=== PATIENT | male | born 1950 | race Caucasian/White ===

== ENCOUNTER 2018-08-02 07:11 | Emergency (ER) | payer OTHER ==
[~2018-08-02] VITALS: Ht 170.2 cm; Wt 83.9 kg
[2018-08-02] MEDS ORDERED: [UNRECOGNIZED DRUG - OTHER] PO (07:38)
[2018-08-02] MEDS ORDERED: SIMVASTATIN5 MG PO (07:40)
[2018-08-02] MEDS ORDERED: [UNRECOGNIZED DRUG - OTHER] PO (07:41)
[2018-08-02] MEDS ORDERED: AMOX1TAB5 PO (11:23)
== END 2018-08-02 14:44 | disposition home or self-care (01) ==
LOC: ER 07:11
DX: B34.9 Viral infection, unspecified (principal)

== ENCOUNTER 2019-12-13 08:05 | Outpatient (CLI) | payer OTHER ==
[~2019-12-13 08:05] MED LIST: AMOX1TAB5 PO; SIMVASTATIN5 MG PO; [UNRECOGNIZED DRUG - OTHER] PO; [UNRECOGNIZED DRUG - OTHER] PO
== END 2019-12-13 09:00 | disposition home or self-care (01) ==
LOC: SONOGRAMA 08:05
DX: K81.1 Chronic cholecystitis (principal)

== ENCOUNTER 2019-12-29 04:45 | Day surgery (SDC) | payer OTHER ==
[~2019-12-29 04:45] MED LIST changes: +COZAAR100 MG PO; +FENOFIBRATE150 MG PO; +NORVASC5 MG PO
== END 2019-12-29 12:50 | disposition home or self-care (01) ==
LOC: CIR.AMB 04:45 → SURG 08:00 → EDSTATUS 08:00 → CIR.AMB 08:00
DX: K80.10 Calculus of gallbladder with chronic cholecystitis without obstruction (principal)

== ENCOUNTER 2020-05-07 12:31 | Outpatient (CLI) | payer OTHER | END 2020-05-07 14:32 | disposition home or self-care (01) | LOC: NUCLEAR 12:31 | PROVIDERS: ATTEND Internal Medicine Hematology & Oncology | DX: K65.4 Sclerosing mesenteritis (principal) | CPT/HCPCS: 78803; A9556 ==